=== PATIENT | female | born 1995 | race Caucasian/White ===

== ENCOUNTER 2020-04-12 12:25 | Emergency (ER) | payer OTHER, MEDICAID, SELFPAY ==
[2020-04-12 12:51] VITALS: BP 132/67; PULSE 96; RESP 18; TEMP 36.9; O2SAT 97; BMI 44.6
[2020-04-12] MEDS: SODIUM CHLORIDE 0.9% 1,000 ML 1000 ML IV (13:30)
[2020-04-12] MEDS: ONDANSETRON 4 MG/2 ML INJ IV (13:30)
[2020-04-12] MEDS: ACETAMINOPHEN 325 MG TABLET 650 MG PO (13:30)
[2020-04-12 13:37] LABS: Add Manual Diff / Slide Review NO; Basophils Absolute Auto 0 /uL (0-100); Basophils Percent Auto 0.4 % (0-2); Eosinophils Absolute Auto 300 /uL (0-450); Eosinophils Percent Auto 2.8 % (2-4); Hematocrit 34.7 % (36-46); Hemoglobin 11.9 g/dL (12.0-16.0); Lymphocytes Absolute Auto 1900 /uL (1100-4500); Lymphocytes Percent Auto 16.1 % (25-40); Mean Corpuscular HGB Conc 34.2 % (30-36); Mean Corpuscular Hemoglobin 28.6 PG (26-34); Mean Corpuscular Volume 83.7 fL (80-100); Monocytes Absolute Auto 800 /uL (0-900); Monocytes Percent Auto 6.8 % (3-14); Neutrophils Absolute Auto 8500 /uL (1500-7000); Neutrophils Percent Auto 73.9 % (50-75); Platelet Count 211 X10^3/uL (150-400); Red Blood Cell Count 4.14 X10^6/uL (4.0-5.2); Red Cell Distribution Width 15.9 % (11.6-14.8); White Blood Cell Count 11.6 X10^3/uL (4.5-11.0)
[2020-04-12 13:47] LABS: Alanine Aminotransferase 12 IU/L (<35); Albumin 3.6 g/dL (3.5-5.0); Albumin Globulin Ratio 1.2 (1.0-2.8); Alkaline Phosphatase 60 U/L (38-126); Aspartate Aminotransferase 34 IU/L (14-36); BUN Creatinine Ratio 21.3 (6-22); Bilirubin Total 0.2 mg/dL (0.2-1.3); Blood Urea Nitrogen 10 mg/dL (7-17); Calcium 9.1 mg/dL (8.4-10.2); Carbon Dioxide 22 mmol/L (22-32); Chloride 104 mmol/L (98-107); Estimated Glomerular Filt Rate > 60.0 mL/min (>60); Globulin 3.1 g/dL (1.7-4.1); Glucose 106 mg/dL (70-100); HEMOLYSIS < 15 (0-50); Potassium 3.6 mmol/L (3.4-5.1); Sodium 135 mmol/L (137-145); Total Protein 6.7 g/dL (6.3-8.2)
[2020-04-12 14:00] VITALS: BP 105/54; PULSE 87; RESP 16; O2SAT 100
[2020-04-12 14:44] LABS: RBC Urine None Seen (0-5/HPF)
[2020-04-12 14:51] LABS: Amorphous Sediment Urine 2+; Bacteria Urine Many (>30); Culture Indicated Urine Cult Not Indicated; Squamous Epithelial Cell Urine 10-30 /HPF (0-5/HPF); WBC Urine 1-5/HPF (0-5/HPF)
--- NOTE | 2020-04-12 14:55 | ED_ITS ---
HPI - Headache <DIONE Nogueira - Last Filed: 04/12/20 20:01> General Chief Complaint: Headache Stated Complaint: 17wks , dizzy, higher BP than usual Time Seen by Provider: 04/12/20 12:49 Source: patient Mode of arrival: Ambulatory Limitations: no limitations History of Present Illness HPI Narrative: This is a 24 year female, nonsmoker, history of and reports she is with approximately 18 week EGA presents to ED with chief complain of feeling dizzy, nausea, headache at work. Patient noticed elevated blood pressure of 134/84 and heart rate up to 106. Patient states her usual blood pressures in 120s over 70s. 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 She felt dehydrated so she drank 2 large glass of water and had something to eat. Patient reports mild abdominal pain but denies vaginal bleeding. Patient occasionally feels movement as fluttering sensation. She reports IUP has been verified and is a patient of informal waiter/waitress STANLEY Funes in [facility]. She had an appointment in the beginning of March and follow-up appointment is set up on this month. Patient denies history of complication during including -induced hypertension, diabetes. Patient has history of asthma and is currently taking vitamin. LMP 12/11/19 and currently 17 wks +4 days EGA. Related Data Previous Rx's Medication Instructions Recorded ondansetron 4 mg PO BID-TID PRN #7 tab 04/12/20 Allergies Allergy/AdvReac Type Severity Reaction Status Date / Time No Known Drug Allergies Allergy Verified 04/12/20 13:29 Review of Systems <DIONE Nogueira - Last Filed: 04/12/20 20:01> Review of Systems Narrative: General: Denies fever, chills, fatigue, malaise, sweats. HEENT: Denies sinus pain, ear pain, sore throat, difficulty swallowing, dizziness. Respiratory: Denies dyspnea, cough, wheezing, hemoptysis, sputum. Cardiovascular: Denies chest pain, palpitations, orthopnea, edema. Gastrointestinal: Denies (+) nausea, vomiting, abdominal pain, diarrhea, constipation, melena. : Denies dysuria, frequency, incontinence, hematuria, urinary retention. Musculoskeletal: Denies weakness, joint pain or bony pain. Skin: Denies rash, skin lesions, or other. Neurologic: Denies weakness, (+) mild headache, (+) mild dizziiness, numbness, change in speech, confusion, seizures, incoordination. Psychiatric: No concerning psychosocial issues. 12-point review of systems is negative except for those stated above. Patient History <DIONE Nogueira - Last Filed: 04/12/20 20:01> Medical History Asthma (Acute) Social History Smoking Status: Never smoker Smoking Status: Never smoker alcohol intake frequency: 0-2 drinks per day Substance Use Type: does not use Exam <DIONE Nogueira - Last Filed: 04/12/20 20:01> Narrative Exam Narrative: GEN: Alert, oriented x 3, well appearing and nourished, and in no acute distress. Head: Normal cephalic, atraumatic. No scalp or temporal tenderness, palpable mass or rash. EYES: Pupils are equal, round, and reactive to light and accommodation. Extraocular muscles are intact bilaterally. There is no subconjunctival hemorrhage, exudate and sclera non-icteric. ENT: Hearing grossly intact. Nose without bleeding, purulent discharge or deviation. Facial sinuses nontender to palpate. Mucous membrane dry, no mucosal lesion. Throat without erythema, tonsillar hypertrophy or exudate. Uvula in midline, airway patent. Neck: Trachea in midline. No JVD, non-tender without lymphadenopathy. No masses or thyroid megaly. Supple, non-tender and no meningeal signs. CARDIAC: Normal regular rate and rhythm without murmurs, gallops, or rubs. No chest wall tenderness. No peripheral edema, cyanosis or pallor. Capillary refill is less than 2 seconds. RESPIRATORY: Lungs are clear to auscultate bilaterally. No cough, wheezes, rales, or rhonchi. No stridor, respiratory distress, increase work of breathing, or accessary muscle used. ABD: Abdomen soft, nontender and non-distended. No guarding or rebound tenderness to palpate. Bowel sounds are normal in all 4 quadrants. There is no palpable masses or organomegaly. EXT: Full painless ROM of all extremities with no loss of sensation, strength, effusion or edema. SKIN: Warm, dry, normal color for patient. No erythema, lesions or rash over visible areas. BACK: Nontender without deformity or crepitance. No flank tenderness. NEUROLOGICAL: Alert and oriented to place, time and person. Sensation and motor function intact bilaterally. No facial droops, dysphasia. PSYCHIATRIC: Good judgement and reason, without hallucinations, abnormal affect or abnormal behaviors during the examination. Patient is not suicidal. Initial Vital Signs Initial Vital Signs: Vital Signs Temperature 98.4 F 04/12/20 12:51 Pulse Rate 96 H 04/12/20 12:51 Respiratory Rate 18 04/12/20 12:51 Blood Pressure 132/67 04/12/20 12:51 Pulse Oximetry 97 04/12/20 12:51 OB/External & Speculum: deferred Other: FHT in 140 bmp <Emigdio Smith MD - Last Filed: 04/13/20 08:05> Initial Vital Signs Initial Vital Signs: Vital Signs Temperature 98.4 F 04/12/20 12:51 Pulse Rate 96 H 04/12/20 12:51 Respiratory Rate 18 04/12/20 12:51 Blood Pressure 132/67 04/12/20 12:51 Pulse Oximetry 97 04/12/20 12:51 Scores <DIONE Nogueira - Last Filed: 04/12/20 20:01> GCS Connie coma scale eye opening: Spontaneous Connie coma scale verbal response: Orientated Connie coma scale motor response: Obey commands Connie coma scale total score: 15 Course <DIONE Nogueira - Last Filed: 04/12/20 20:01> Orders Ordered: Discontinued Medications Acetaminophen (Tylenol) 650 mg PO NOW ONE Stop: 04/12/20 12:59 Last Admin: 04/12/20 13:30 Dose: 650 mg Documented by: BRIANDA Sodium Chloride (Normal Saline 0.9%) 1,000 mls @ 1,000 mls/hr IV BOLUS ONE Stop: 04/12/20 13:57 Last Infusion: 04/12/20 14:34 Dose: 0 mls/hr Documented by: Admin: 04/12/20 13:30 Dose: 1,000 mls/hr Documented by: SCANAPO Ondansetron HCl (Zofran) 4 mg IV NOW ONE Stop: 04/12/20 12:59 Last Admin: 04/12/20 13:30 Dose: 4 mg Documented by: BRIANDA Vital Signs Vital signs: Vital Signs - 8 hr 04/12/20 12:51 04/12/20 14:00 04/12/20 15:00 Temperature 98.4 F Pulse Rate 96 H 87 91 H Respiratory Rate 18 16 16 Blood Pressure 132/67 Blood Pressure [Right Arm] 105/54 L 109/59 L Pulse Oximetry 97 100 97 <Emigdio Smith MD - Last Filed: 04/13/20 08:05> Orders Ordered: Discontinued Medications Acetaminophen (Tylenol) 650 mg PO NOW ONE Stop: 04/12/20 12:59 Last Admin: 04/12/20 13:30 Dose: 650 mg Documented by: BRIANDA Sodium Chloride (Normal Saline 0.9%) 1,000 mls @ 1,000 mls/hr IV BOLUS ONE Stop: 04/12/20 13:57 Last Infusion: 04/12/20 14:34 Dose: 0 mls/hr Documented by: Admin: 04/12/20 13:30 Dose: 1,000 mls/hr Documented by: BRIANDA Ondansetron HCl (Zofran) 4 mg IV NOW ONE Stop: 04/12/20 12:59 Last Admin: 04/12/20 13:30 Dose: 4 mg Documented by: BRIANDA Vital Signs Vital signs: Vital Signs - 8 hr 04/12/20 12:51 04/12/20 14:00 04/12/20 15:00 Temperature 98.4 F Pulse Rate 96 H 87 91 H Respiratory Rate 18 16 16 Blood Pressure 132/67 Blood Pressure [Right Arm] 105/54 L 109/59 L Pulse Oximetry 97 100 97 MDM - Headache <DIONE Nogueira - Last Filed: 04/12/20 20:01> Differential Diagnosis Differential diagnosis: Likely headache and other (Dehydration, arrhythmia, anemia, electrolytes imbalance) Medical Records Attestation: I reviewed the patient's medical records. Lab Data Attestation: I reviewed the patient's lab results. Result diagrams: 04/12/20 13:25 04/12/20 13:25 Labs: Lab Results 06/04/12/20 04/12/20 Range/Units 13:25 13:25 14:35 WBC 11.6 H (4.5-11.0) X10^3/uL RBC 4.14 (4.0-5.2) X10^6/uL Hgb 11.9 L (12.0-16.0) g/dL Hct 34.7 L (36-46) % MCV 83.7 (80-100) fL MCH 28.6 (26-34) PG MCHC 34.2 (30-36) % RDW 15.9 H (11.6-14.8) % Plt Count 211 (150-400) X10^3/uL Neut % (Auto) 73.9 (50-75) % Lymph % (Auto) 16.1 L (25-40) % [place] % (Auto) 6.8 (3-14) % Eos % (Auto) 2.8 (2-4) % Baso % (Auto) 0.4 (0-2) % Neut # (Auto) 8500 H (9951-6114) /uL Lymph # (Auto) 1900 (0868-0076) /uL [place] # (Auto) 800 (0-900) /uL Eos # (Auto) 300 (0-450) /uL Baso # (Auto) 0 (0-100) /uL Sodium 135 L (137-145) mmol/L Potassium 3.6 (3.4-5.1) mmol/L Chloride 104 (98-107) mmol/L Carbon Dioxide 22 (22-32) mmol/L BUN 10 (7-17) mg/dL Creatinine 0.47 L (0.52-1.04) mg/dL Estimated GFR > 60.0 (>60) mL/min BUN/Creatinine Ratio 21.3 (6-22) Glucose 106 H (70-100) mg/dL Calcium 9.1 (8.4-10.2) mg/dL Total Bilirubin 0.2 (0.2-1.3) mg/dL AST 34 (14-36) IU/L ALT 12 (<35) IU/L Alkaline Phosphatase 60 (38-126) U/L Total Protein 6.7 (6.3-8.2) g/dL Albumin 3.6 (3.5-5.0) g/dL Globulin 3.1 (1.7-4.1) g/dL Albumin/Globulin Ratio 1.2 (1.0-2.8) Urine RBC None seen (0-5/HPF) Urine WBC 1-5/hpf (0-5/HPF) Ur Squamous Epith Cells 10-30 /hpf H (0-5/HPF) Amorphous Sediment 2+ Urine Bacteria Many (>30) H (None) Ur Culture Indicated? Cult not indicated Point of Care Testing Test Results Positive Urine Dip Bedside Urine Glucose Negative Bedside Urine Bilirubin - Negative Bedside Urine Ketone - Negative Urine Specific [place] 1.015 Bedside Urine Occult Blood - Negative Bedside Urine pH 6.0 Bedside Urine Protein - Negative Bedside Urine Urobilinogen - Negative Bedside Urine Nitrite - Negative Bedside Urine Leukocytes + 70 Esterase ECG Data Attestation: I personally reviewed and interpreted this ECG as follows: Prior ECG tracings: not available for review Interpretation: Sinus rhythm rate at 85. Normal [place]. OK interval 158, QRS duration 90, QT/QTC 364/433. No acute ST changes MDM Narrative Medical decision making narrative: EKG is normal sinus rhythm without acute ST changes. Slightly decreased H&H of 11.9/34.7 which could be normal physiologic changes during . No leukocytosis. Slightly decreased sodium level of 135. Normal kidney function and liver function test. Slightly increased serum glucose of 106. Normal heart tone in range of 140 bpm. Patient was hydrated with 1 L of normal saline and administered Tylenol and Zofran for her symptoms and she felt much improved. Patient was able to ambulate to the bathroom in stable gait and back to bed. Vital signs have improved with decreased blood pressure to 109/59 with heart rate in 80s to 91. Negative urine nitrite with +70 urine leukoesterase. Urine micro tests shows squamous epithelial cells with many bacteria with small amount of Urine WBC of 1-5/hpf. This is possibly due to contaminated urine sample. Urine culture is pending and patient denies any urinary symptoms. Patient discharged to home with Zofran for as needed nausea and vomiting and advised to take Tylenol as needed for discomfort. Since patient does not have vaginal bleeding, pelvic exam was deferred and no further ultrasound test was obtained during this visit. Return precautions were discussed with patient and she verbalized understanding and in agreement with treatment plan. <Emigdio Smith MD - Last Filed: 04/13/20 08:05> Lab Data Labs: Lab Results 04/12/20 04/12/20 04/12/20 Range/Units 13:25 13:25 14:35 WBC 11.6 H (4.5-11.0) X10^3/uL RBC 4.14 (4.0-5.2) X10^6/uL Hgb 11.9 L (12.0-16.0) g/dL Hct 34.7 L (36-46) % MCV 83.7 (80-100) fL MCH 28.6 (26-34) PG MCHC 34.2 (30-36) % RDW 15.9 H (11.6-14.8) % Plt Count 211 (150-400) X10^3/uL Neut % (Auto) 73.9 (50-75) % Lymph % (Auto) 16.1 L (25-40) % [place] % (Auto) 6.8 (3-14) % Eos % (Auto) 2.8 (2-4) % Baso % (Auto) 0.4 (0-2) % Neut # (Auto) 8500 H (7931-9322) /uL Lymph # (Auto) 1900 (1026-6280) /uL [place] # (Auto) 800 (0-900) /uL Eos # (Auto) 300 (0-450) /uL Baso # (Auto) 0 (0-100) /uL Sodium 135 L (137-145) mmol/L Potassium 3.6 (3.4-5.1) mmol/L Chloride 104 (98-107) mmol/L Carbon Dioxide 22 (22-32) mmol/L BUN 10 (7-17) mg/dL Creatinine 0.47 L (0.52-1.04) mg/dL Estimated GFR > 60.0 (>60) mL/min BUN/Creatinine Ratio 21.3 (6-22) Glucose 106 H (70-100) mg/dL Calcium 9.1 (8.4-10.2) mg/dL Total Bilirubin 0.2 (0.2-1.3) mg/dL AST 34 (14-36) IU/L ALT 12 (<35) IU/L Alkaline Phosphatase 60 (38-126) U/L Total Protein 6.7 (6.3-8.2) g/dL Albumin 3.6 (3.5-5.0) g/dL Globulin 3.1 (1.7-4.1) g/dL Albumin/Globulin Ratio 1.2 (1.0-2.8) Urine RBC None seen (0-5/HPF) Urine WBC 1-5/hpf (0-5/HPF) Ur Squamous Epith Cells 10-30 /hpf H (0-5/HPF) Amorphous Sediment 2+ Urine Bacteria Many (>30) H (None) Ur Culture Indicated? Cult not indicated Point of Care Testing Test Results Positive Urine Dip Bedside Urine Glucose Negative Bedside Urine Bilirubin - Negative Bedside Urine Ketone - Negative Urine Specific [place] 1.015 Bedside Urine Occult Blood - Negative Bedside Urine pH 6.0 Bedside Urine Protein - Negative Bedside Urine Urobilinogen - Negative Bedside Urine Nitrite - Negative Bedside Urine Leukocytes + 70 Esterase Discharge Plan Departure Patient Disposition: Home Clinical Impression: Dizziness Headache Qualifiers: Headache type: unspecified Headache chronicity pattern: unspecified pattern Intractability: not intractable Qualified Code(s): R51 - Headache Discharge Date/Time: 04/12/20 15:27 Instructions: DI for Headache, DI for Dizziness-Nonvertigo Activity Restrictions/Additional Instructions: You have been diagnosed with [mild headache and dizziness during . Very mild anemia today and H/H is 11.9/34.7 which may be normal physiologic changes during . Mildly decreased sodium level of 135 and mildly elevated blood glucose of 106. Urine culture is pending and you do not endorse urinary symptoms today. Urine sample may be contaminated. You might have been dehydrated which has been corrected by p.o. and IV fluids. What to do: *Take your medications as directed. You can take [id number] Tylenol as needed for discomfort. Please take Zofran as needed for nausea so it you can hydrate adequately. Zofran has been transmitted to [facility] in [place]. *Follow up with your primary care provider in 2-3 days, call for an appointment. Let them know you were seen in the ED and that we asked you to be seen in follow up. *Return to ED if you have any new, worsening, or concerning symptoms, such as [increasing abdominal pain, vaginal bleeding, chest pain, breathing difficulty, unable to tolerate fluids, fever or any acute concerns]. Prescriptions: New ondansetron 4 mg tablet,disintegrating 4 mg PO BID-TID PRN (Reason: nausea and vomiting) Qty: 7 RF: 0 Referrals: [facility] [Outside]
[2020-04-12 15:00] VITALS: BP 109/59; PULSE 91; RESP 16; O2SAT 97
== END 2020-04-12 15:27 | disposition home or self-care (01) ==
PROVIDERS: Emergency Provider Nurse Practitioner Family
DX: O26.892 Other specified pregnancy related conditions, second trimester (principal); R42 Dizziness and giddiness; R51 Headache; I10 Essential (primary) hypertension; Z3A.18 18 weeks gestation of pregnancy
CPT/HCPCS: 36415; 80053; 81003; 81015; 81025; 85025; 93005; 96361; 96374; 99284; J2405

== ENCOUNTER → 2020-06-11 08:33 | Outpatient (CLI) | payer OTHER, MEDICAID, SELFPAY ==
[2020-06-11 10:43] LABS: Hematocrit 35.3 % (36-46); Hemoglobin 11.6 g/dL (12.0-16.0)
[2020-06-18 13:40] LABS: GTT (PREG) 1 Hour PP 50gm Dose 119 mg/dL (76-139)
== END ==
PROVIDERS: PCP Obstetrics & Gynecology; Referring Provider Obstetrics & Gynecology; Visit Provider Obstetrics & Gynecology
DX: Z34.82 Encounter for supervision of other normal pregnancy, second trimester (principal); Z3A.26 26 weeks gestation of pregnancy
CPT/HCPCS: 36415; 82950; 85014; 85018

== ENCOUNTER 2020-07-05 13:41 | Outpatient (CLI) | payer OTHER, MEDICAID, SELFPAY | END 2020-07-05 14:50 | disposition home or self-care (01) | LOC: LABOR 14:27 → OB 07-06 12:31 | PROVIDERS: PCP Obstetrics & Gynecology; Referring Provider Obstetrics & Gynecology; Visit Provider Obstetrics & Gynecology | DX: O47.03 False labor before 37 completed weeks of gestation, third trimester (principal); N89.8 Other specified noninflammatory disorders of vagina; Z3A.29 29 weeks gestation of pregnancy | CPT/HCPCS: 59025; 84112; G0378; G0379 ==

== ENCOUNTER 2020-08-10 10:41 | Emergency (ER) | payer OTHER, MEDICAID, SELFPAY ==
[2020-08-10 10:55] VITALS: BP 145/71; PULSE 110; RESP 18; TEMP 36.9; O2SAT 97; BMI 42.9
[2020-08-10 11:04] VITALS: PULSE 108; O2SAT 97
[2020-08-10 11:30] VITALS: PULSE 99; O2SAT 95
[2020-08-10 12:00] VITALS: PULSE 101; O2SAT 97
[2020-08-10] MEDS: LIDOCAINE PATCH 1 EACH ADH..PATCH TOP (12:07)
[2020-08-10] MEDS: ACETAMINOPHEN 325 MG TABLET 975 MG PO (12:08)
[2020-08-10 12:30] VITALS: PULSE 96; O2SAT 98
--- NOTE | 2020-08-10 13:16 | ED.FALL ---
HPI - Fall <Janie Pate SWITCHBOARD OPERATOR SUPERVISOR-BC - Last Filed: 08/10/20 14:24> General Chief Complaint: Fall Stated Complaint: fell at work, 35 weeks preg Time Seen by Provider: 08/10/20 11:21 Source: patient Mode of arrival: Ambulatory Limitations: no limitations History of Present Illness HPI Narrative: The patient is a 25-year-old female former smoker with 35 weeks who presents with a chief complaint of a ground level fall earlier today. She states that she stepped on a wet floor while at work, slipped back and presents complaining of right great toe pain, right graham pain and lower back pain. She did not lose consciousness. She states she did not hit her head. She is 35 weeks , did not land on her abdomen, does not have any vaginal bleeding or abdominal pain. She states that the baby feels fine and she can feel her kicking a lot. She has not taken anything for pain or applied ice. 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 She denies any numbness or tingling. She denies any incontinence of bowel or bladder. She denies any head or neck pain. Modified trauma was considered for this patient as she is more than 20 weeks , however elected not to as she did not hit her head or her neck and is declining any imaging in the emergency department. Related Data Home Medications Medication Instructions Recorded Confirmed acetaminophen 500 mg capsule 500 mg PO Q6H PRN 05/27/20 07/21/20 aspirin 81 mg tablet,delayed 81 mg PO DAILY 05/27/20 07/21/20 release doxylamine 10 mg-pyridoxine (vit 1 tab PO DAILY 05/27/20 07/21/20 B6) 10 mg tablet,delayed release naproxen 500 mg tablet,delayed 500 mg PO BID 05/27/20 07/21/20 release sertraline 50 mg tablet 50 mg PO DAILY 05/27/20 07/21/20 Previous Rx's Medication Instructions Recorded ondansetron 4 mg PO BID-TID PRN #7 tab 04/12/20 Allergies Allergy/AdvReac Type Severity Reaction Status Date / Time cat dander Allergy Severe not Verified 07/21/20 15:34 documented in Transfer OB Record pollen extracts Allergy Intermediate not Verified 07/21/20 15:34 documented in Transfer OB Record Review of Systems <ASHWIN Nolasco - Last Filed: 08/10/20 14:24> Review of Systems Narrative: GENERAL: Denies chills, fatigue, malaise, fever, sweats. HEENT: Denies sinus pain, ear pain, sore throat, difficulty swallowing, dizziness. RESPIRATORY: Denies dyspnea, cough, wheezing, hemoptysis, sputum. CARDIOVASCULAR: Denies chest pain, palpitations, orthopnea, edema, GASTROINTESTINAL: Denies nausea, vomiting, abdominal pain, diarrhea, constipation, melena. : Denies dysuria, frequency, incontinence, hematuria, urinary retention. MUSCULOSKELETAL: See HPI SKIN: See HPI NEUROLOGIC: Denies weakness, headache, numbness, change in speech, confusion, seizures, incoordination. PSYCHIATRIC: No concerning psychosocial issues. 12 point review of systems is negative except for those stated above Patient History <ASHWIN Nolasco - Last Filed: 08/10/20 14:24> Medical History (Updated 08/10/20 @ 13:20 by ASHWIN Nolasco) Acne (Chronic) Allergies (Chronic) Anemia (Chronic) Anxiety and depression (Acute) Asthma (Acute) Bronchitis (Acute) Chlamydia (Inactive ~2010) Heavy menstrual period (Chronic) Hemorrhoid (Inactive ~2014) Major depression (Acute) Obesity (Acute) Painful menstrual periods (Inactive) Psoriasis (Chronic) Surgical History (Updated 06/11/20 @ 11:36 by Alea Macias RN) Anesthesia (Resolved) History of hernia repair (Resolved ~1998) Family History (Updated 06/11/20 @ 11:33 by Alea Macias, RN) Grandmother Breast cancer Pacemaker History of peritoneal dialysis Asthma Colon cancer Mother Breast cancer Scoliosis Allergies History of stillbirth Family/Other Skin cancer History of bipolar disorder Father Hypertension Sleep apnea Rheumatoid arthritis Grandmother Hypertension Hypothyroidism Sister Hyperthyroidism Anemia Scoliosis Depression Anxiety Asthma Allergies Migraines History of thyroidectomy Brother Autism Family/Other ADHD Depression Asthma Plantar warts Family/Other History of bipolar disorder Dissociative disorder Family/Other Eczema Grandfather Cancer Myocardial infarction Grandmother Cancer Breast cancer Colon cancer H/O right coronary artery stent placement Social History (Updated 05/27/20 @ 11:10 by Alea Macias RN) marital status: unmarried,living together number of children: 1 household members: significant other, family and children lives independently: No pets and animals: Yes (X 1 dog) 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 occupational 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: Yes (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 Normocephalic. No temporal or scalp tenderness. EYES: Pupils equal round and reactive. Extraocular motions intact. No scleral icterus. No injection or drainage. ENT: Nose without bleeding, purulent drainage or septal hematoma. Wearing a mask. Airway patent. NECK: Trachea midline. No JVD or lymphadenopathy. Supple, nontender, no meningeal signs. CARDIOVASCULAR: Regular rate and rhythm RESPIRATORY: Clear to auscultation. Breath sounds equal bilaterally. No wheezes, rales, or rhonchi. No cough. No increased respiratory effort. No accessory muscle use. GASTROINTESTINAL: Abdomen soft, non-tender, nondistended. Gravid uterus. No hepato-splenomegaly, or palpable masses. No guarding. EXTREMITIES: Skin exam as noted. Full range of motion noted right knee able to fully flex and extend, able to flex and extend right great toe against resistance. Capillary refill less than 2 seconds. Pedal pulses intact bilaterally. BACK: No pain to midline CT or L-spine palpation. Nontender without deformity or crepitance. Pain to right paraspinal muscle palpation on the lumbar region. NEURO: AOx3. SKIN: Two cm abrasion noted on right knee, area of ecchymosis noted at base of right 1st toe. Vital signs. No periorbital ecchymosis. Initial Vital Signs Initial Vital Signs: Vital Signs Temperature 98.5 F 08/10/20 10:55 Pulse Rate 110 H 08/10/20 10:55 Respiratory Rate 18 08/10/20 10:55 Blood Pressure 145/71 H 08/10/20 10:55 Pulse Oximetry 97 08/10/20 10:55 <Timothy Mark DO - Last Filed: 08/10/20 14:25> Initial Vital Signs Initial Vital Signs: Vital Signs Temperature 98.5 F 08/10/20 10:55 Pulse Rate 110 H 08/10/20 10:55 Respiratory Rate 18 08/10/20 10:55 Blood Pressure 145/71 H 08/10/20 10:55 Pulse Oximetry 97 08/10/20 10:55 Course <WILY NolascoBC - Last Filed: 08/10/20 14:24> Orders Ordered: Discontinued Medications Acetaminophen (Tylenol) 975 mg PO NOW ONE Stop: 08/10/20 11:50 Last Admin: 08/10/20 12:08 Dose: 975 mg Documented by: ALBINMEN Lidocaine (Lidoderm) 1 each TOP NOW ONE Stop: 08/10/20 11:50 Last Admin: 08/10/20 12:07 Dose: 1 each Documented by: ALBINMEN Lidocaine (Lidoderm (Remove Patch)) 1 each TOP BEDTIME BUFFY Vital Signs Vital signs: Vital Signs - 8 hr 08/10/20 10:55 08/10/20 11:04 08/10/20 11:30 Temperature 98.5 F Pulse Rate 110 H 108 H 99 H Respiratory Rate 18 Blood Pressure 145/71 H Pulse Oximetry 97 97 95 08/10/20 12:00 08/10/20 12:30 08/10/20 13:45 Temperature Pulse Rate 101 H 96 H 92 H Respiratory Rate 18 Blood Pressure 130/64 Pulse Oximetry 97 98 100 <Timothy Mark DO - Last Filed: 08/10/20 14:25> Orders Ordered: Discontinued Medications Acetaminophen (Tylenol) 975 mg PO NOW ONE Stop: 08/10/20 11:50 Last Admin: 08/10/20 12:08 Dose: 975 mg Documented by: BSMEN Lidocaine (Lidoderm) 1 each TOP NOW ONE Stop: 08/10/20 11:50 Last Admin: 08/10/20 12:07 Dose: 1 each Documented by: BSMEN Lidocaine (Lidoderm (Remove Patch)) 1 each TOP BEDTIME BUFFY Vital Signs Vital signs: Vital Signs - 8 hr 08/10/20 10:55 08/10/20 11:04 08/10/20 11:30 Temperature 98.5 F Pulse Rate 110 H 108 H 99 H Respiratory Rate 18 Blood Pressure 145/71 H Pulse Oximetry 97 97 95 08/10/20 12:00 08/10/20 12:30 08/10/20 13:45 Temperature Pulse Rate 101 H 96 H 92 H Respiratory Rate 18 Blood Pressure 130/64 Pulse Oximetry 97 98 100 MDM - Fall <Janie Pate SWITCHBOARD OPERATOR SUPERVISOR-BC - Last Filed: 08/10/20 14:24> [facility] Narrative Medical decision making narrative: The patient is a 25-year-old female who presents with a chief complaint of a ground level fall earlier today and she is 35 weeks . She has good baby movement, heart tones in the 150s. After the above-stated therapies, she declines imaging at this point time. I discussed with her that I could not rule out acute fracture at this point time however the fact that she can ambulate and has good range of motion is very reassuring. She still declines any imaging as well. She states that she is having could be moved, BV can be felt kicking with no abdominal pain or vaginal bleeding. Encouraged to follow up with primary care provider in the next few days as well as come back to the emergency department for any acute concerns such as abdominal pain. Discussed patient with Dr Mark. Encouraged rest ice compression elevation as well as [id number] pain medications as needed and able. Patient has no questions or concerns upon discharge and states understanding return precautions as well as follow-up care. Discharge Plan Departure Patient Disposition: Home Clinical Impression: Fall from ground level Abrasion of knee Qualifiers: Encounter type: initial encounter Laterality: right Qualified Code(s): S80.211A - Abrasion, right knee, initial encounter Low back strain Qualifiers: Encounter type: initial encounter Qualified Code(s): S39.012A - Strain of muscle, fascia and tendon of lower back, initial encounter Contusion of toe of left foot Qualifiers: Encounter type: initial encounter Toe: great toe Damage to nail status: without damage Qualified Code(s): S90.112A - Contusion of left great toe without damage to nail, initial encounter Discharge Date/Time: 08/10/20 13:45 Instructions: DI for Contusion, How to Prevent Falls, DI for Abrasion, DI for Back Strain or Sprain Activity Restrictions/Additional Instructions: Thank you for trusting us with your care today. As discussed, please follow-up with primary care provider in the next few days I suggest rest ice compression elevation as well as acetaminophen as needed and able. You have elected to not get x-rays today, so definitely follow up with primary care provider specially if new or worsening symptoms. In the meantime please come back to the emergency department for any acute concerns such as inability keep down fluids, neurological concerns etcetera. I have given you a work note for light duty for several days. Prescriptions: No Action sertraline 50 mg tablet 50 mg PO DAILY RF: 0 acetaminophen 500 mg capsule 500 mg PO Q6H PRNRF: 0 naproxen [EC-Naproxen] 500 mg tablet,delayed release (DR/EC) 500 mg PO BID RF: 0 doxylamine-pyridoxine (vit B6) [Diclegis] 10-10 mg tablet,delayed release (DR/EC) 1 tab PO DAILY RF: 0 aspirin [Adult Aspirin Regimen] 81 mg tablet,delayed release (DR/EC) 81 mg PO DAILY RF: 0 ondansetron 4 mg tablet,disintegrating 4 mg PO BID-TID PRN (Reason: nausea and vomiting) Qty: 7 RF: 0 Referrals: Rajesh Turk [Primary Care Provider] - Stand Alone Forms: Work Release Note <Timothy Mark, - Last Filed: 08/10/20 14:25> Cosign ED Attending Cosignature Attestation: Dr Mark Co-Sign Statement: I was available for consultation during this patient's emergency department visit. This chart is signed by myself for administrative purposes only. I did not have direct contact with this patient during this visit. They were seen independently by the APC.
[2020-08-10 13:45] VITALS: BP 130/64; PULSE 92; RESP 18; O2SAT 100
== END 2020-08-10 13:45 | disposition home or self-care (01) ==
PROVIDERS: Emergency Provider Nurse Practitioner Family; PCP Physician Assistant Medical
DX: S80.211A Abrasion, right knee, initial encounter (principal); S39.012A Strain of muscle, fascia and tendon of lower back, initial encounter; S90.112A Contusion of left great toe without damage to nail, initial encounter; W01.0XXA Fall on same level from slipping, tripping and stumbling without subsequent striking against object, initial encounter; Y99.0 Civilian activity done for income or pay
CPT/HCPCS: 99283

== ENCOUNTER → 2020-08-11 17:07 | Outpatient (CLI) | payer OTHER, MEDICAID, SELFPAY ==
[2020-08-12 14:22] LABS: Strep Grp B PCR POS for Grp B Strep
== END ==
PROVIDERS: PCP Physician Assistant Medical; Visit Provider Obstetrics & Gynecology
DX: Z34.83 Encounter for supervision of other normal pregnancy, third trimester (principal); Z3A.35 35 weeks gestation of pregnancy
CPT/HCPCS: 87653

== ENCOUNTER → 2020-09-07 10:53 | Outpatient (CLI) | payer OTHER, MEDICAID, SELFPAY ==
[2020-09-07 12:38] LABS: COVID19 -Nasal RAPID Negative (Negative)
== END ==
PROVIDERS: PCP Physician Assistant Medical; Visit Provider Obstetrics & Gynecology
DX: Z03.818 Encounter for observation for suspected exposure to other biological agents ruled out (principal)
CPT/HCPCS: 87635

== ENCOUNTER 2020-09-08 06:30 | Inpatient (IN) | payer OTHER, MEDICAID, SELFPAY ==
[2020-09-08] MEDS: LACTATED RINGERS 1,000 ML 125 ML IV ×3 (08:27→15:37)
[2020-09-08] MEDS: PENICILLIN G POTASSIUM 5,000,000 UNIT in DEXTROSE 5% IN WATER 250 ML IV (08:27)
[2020-09-08] MEDS: OXYTOCIN PREMIX 30 UNIT/500 ML PLAST..BAG IV (08:28)
[2020-09-08 08:49] LABS: Add Manual Diff / Slide Review NO; Basophils Absolute Auto 0 /uL (0-100); Basophils Percent Auto 0.3 % (0-2); Eosinophils Absolute Auto 200 /uL (0-450); Eosinophils Percent Auto 2.3 % (2-4); Hematocrit 38.7 % (36-46); Hemoglobin 12.6 g/dL (12.0-16.0); Lymphocytes Absolute Auto 2100 /uL (1100-4500); Lymphocytes Percent Auto 20.2 % (25-40); Mean Corpuscular HGB Conc 32.6 % (30-36); Mean Corpuscular Volume 85.6 fL (80-100); Monocytes Absolute Auto 800 /uL (0-900); Monocytes Percent Auto 7.6 % (3-14); Neutrophils Absolute Auto 7200 /uL (1500-7000); Neutrophils Percent Auto 69.6 % (50-75); Platelet Count 196 X10^3/uL (150-400); Red Blood Cell Count 4.51 X10^6/uL (4.0-5.2); Red Cell Distribution Width 14.9 % (11.6-14.8); White Blood Cell Count 10.4 X10^3/uL (4.5-11.0)
[2020-09-08 11:27] VITALS: BP 117/56
[2020-09-08] MEDS: PENICILLIN G POTASSIUM 3,000,000 UNIT/50 ML FROZ.PIGGY 100 UNIT IV (12:50)
[2020-09-08] MEDS: FENT 2MCG/ML BUPIV 0.125% EPI 200 MCG/100 ML PLAST..BAG 12 MCG EPIDURAL (13:00)
[2020-09-08] MEDS: ONDANSETRON 4 MG/2 ML INJ IV (13:05)
--- NOTE | 2020-09-08 17:45 | PM.OBHP.1 ---
OB HPI Date/Time Date of admission: 09/08/20 Date Patient Seen: 09/08/20 Time Patient Seen: 08:00 History of Present Condition Chief complaint: OBS : 2 Para: 1 Estimated Date of Delivery: 09/15/20 Estimated Gestational Age (weeks): 39 Narrative: Tamra Francisco is a 25 year old female 2 para 1 at 39 weeks gestation for induction of labor Indications Indication for induction OB: other ( history of large for gestational age baby) History of Present care: good care, initiated at week # (10), number of visits (12) and pounds weight gain ( 39) Dating criteria: LMP confirmed by 1st trimester US Ultrasounds: normal 1st trimester US and normal mid trimester US Obstetrical complications: none Medical complications: none Preadmission Labs Blood type: O (+) positive -: Antibody screen: negative, GBS status: positive, HBsAG: negative, HIV: negative and RPR/VDLR: negative -: Chlamydia screen: not detected and Gonorrhea screen: not detected -: Rubella: not immune and Varicella: unknown HCT: 38.7 PAP: Normal Quad screen: Normal Urine: negative 1 hr GTT: 119 Prior (ies) History: 1 spontaneous vaginal delivery 8 lb 11 oz Evaluation Evaluation Baseline heart rate: 135 Variability: Moderate (11-25) monitor accelerations: Present monitor decelerations: Absent Category of Tracing: Reactive Cervical dilation (cm): 4 Cervical effacement (%): 80 station: -1 Laboratory results: Laboratory Tests 09/08/20 09/08/20 08:35 08:35 WBC 10.4 RBC 4.51 Hgb 12.6 Hct 38.7 MCV 85.6 MCH 28.0 MCHC 32.6 RDW 14.9 H Plt Count 196 Neut % (Auto) 69.6 Lymph % (Auto) 20.2 L [place] % (Auto) 7.6 Eos % (Auto) 2.3 Baso % (Auto) 0.3 Neut # (Auto) 7200 H Lymph # (Auto) 2100 [place] # (Auto) 800 Eos # (Auto) 200 Baso # (Auto) 0 Blood Type O Positive Antibody Screen Negative [facility] Medical History (Updated 08/25/20 @ 00:00 by ) Acne Allergies Anemia Anxiety and depression Asthma Bronchitis Chlamydia (~2010) Heavy menstrual period Hemorrhoid (~2014) Major depression Obesity Painful menstrual periods Psoriasis Surgical History (Updated 06/11/20 @ 11:36 by Alea Macias RN) Anesthesia History of hernia repair (~1998) Family History (Updated 06/11/20 @ 11:33 by Alea Macias RN) Grandmother Breast cancer Pacemaker History of peritoneal dialysis Asthma Colon cancer Mother Breast cancer Scoliosis Allergies History of stillbirth Family/Other Skin cancer History of bipolar disorder Father Hypertension Sleep apnea Rheumatoid arthritis Grandmother Hypertension Hypothyroidism Sister Hyperthyroidism Anemia Scoliosis Depression Anxiety Asthma Allergies Migraines History of thyroidectomy Brother Autism Family/Other ADHD Depression Asthma Plantar warts Family/Other History of bipolar disorder Dissociative disorder Family/Other Eczema Grandfather Cancer Myocardial infarction Grandmother Cancer Breast cancer Colon cancer H/O right coronary artery stent placement Social History (Updated 05/27/20 @ 11:10 by Alea Macias RN) marital status: unmarried,living together number of children: 1 household members: significant other, family and children lives independently: No pets and animals: Yes (X 1 dog) 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) special 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 needs: No Smoking Status: Former smoker Tobacco: How many years used: 4 second hand exposure: No alcohol intake: former (pre- : occasional ) substance use type: does not use (states per OB Intake 02/24/2020 ) and marijuana (THC + with screen 02/24/2020) Meds Home Medications and Allergies Home Medications Medication Instructions Recorded Confirmed Type ondansetron 4 mg PO BID-TID PRN #7 tab 04/12/20 09/03/20 Rx acetaminophen 500 mg capsule 500 mg PO Q6H PRN 05/27/20 09/03/20 History aspirin 81 mg tablet,delayed 81 mg PO DAILY 05/27/20 09/03/20 History release doxylamine 10 mg-pyridoxine (vit 1 tab PO DAILY 05/27/20 09/03/20 History B6) 10 mg tablet,delayed release naproxen 500 mg tablet,delayed 500 mg PO BID 05/27/20 09/03/20 History release sertraline 50 mg tablet 50 mg PO DAILY 05/27/20 09/03/20 History Allergies Allergy/AdvReac Type Severity Reaction Status Date / Time cat dander Allergy Severe not Verified 09/03/20 15:54 documented in Transfer OB Record pollen extracts Allergy Intermediate not Verified 09/03/20 15:54 documented in Transfer OB Record Exam Vital Signs (past 8 hours): - 09/08/20 11:27 Blood Pressure 117/56 L Narrative Exam Narrative: generally: No acute distress lungs: Clear to auscultation bilaterally cardiovascular: Regular rate and rhythm fundal height: 40 cm estimated weight: 8-1/2 lb extremities: 1+ edema, 1+ DTRs Objective Labs Result Diagrams: 09/08/20 08:35 Labs: Laboratory Results - last 24 hr 09/08/20 09/08/20 08:35 08:35 WBC 10.4 RBC 4.51 Hgb 12.6 Hct 38.7 MCV 85.6 MCH 28.0 MCHC 32.6 RDW 14.9 H Plt Count 196 Neut % (Auto) 69.6 Lymph % (Auto) 20.2 L [place] % (Auto) 7.6 Eos % (Auto) 2.3 Baso % (Auto) 0.3 Neut # (Auto) 7200 H Lymph # (Auto) 2100 [place] # (Auto) 800 Eos # (Auto) 200 Baso # (Auto) 0 Blood Type O Positive Antibody Screen Negative Assessment and Plan Assessment and Plan Assessment and Plan narrative: assessment : 25-year-old 2 para 1 at 39 weeks gestation for induction of labor due to history of large for gestational age baby group B strep positive plan: Group B strep prophylaxis Pitocin per protocol 2 epidural as necessary expected management to spontaneous vaginal delivery Time Spent with Patient Total time spent with greater than 50% in coordination of care (as documented) at patient's floor/unit and/or counseling patient:: 15-24 minutes
--- NOTE | 2020-09-08 17:51 | PM.OBPRVD ---
Events: Labor Induction Labor & Delivery Delivery date: 09/08/20 Cervical ripening method: none Induction method: per pitocin protocol Delivery augmentation: rupture of membranes Delivery monitor: external FHT and external uterine Route of delivery: Episiotomy description: None L&D Laceration Description: Labial ( left superficial) Delivery repair: chromic Estimated blood loss (mL): 150 Anesthesia type: Epidural Complications: none Narrative: patient complete and pushed for 15 minutes. At 5:23 p.m., a live female infant delivered spontaneously in the ALE presentation. No nuchal cord. The remainder of the body delivered without difficulty and was placed on mom's abdomen. The cord was double clamped and cut after it stopped pulsing. Cord bloods were obtained. Pitocin was given in the IV fluids. Placenta delivered intact with a three-vessel cord at 5:27 p.m.. Fundus was massaged to firm. A left superficial labial laceration was repaired with 3-0 Vicryl in the usual fashion. Hemostasis was achieved. Estimated blood loss 150 cc. Apgars 9 at 1 minute and 9 at 5 minutes. . Epidural analgesia. Mom and stable to recovery. Baby 1: gender: Female Presentation: vertex Placenta delivery description: Spontaneous and Normal Configuration cord vessel description: 3 Vessels score (1 min): 9 score (5 min): 9 Plan for aftercare: To routine care
[2020-09-09] MEDS: IBUPROFEN 600 MG TABLET PO ×2 (01:23→08:07)
[2020-09-09] MEDS: LANOLIN OINT 7 GM 1 APPLIC TOP (01:23)
[2020-09-09] MEDS: DOCUSATE 100 MG CAPSULE PO (08:06)
[2020-09-09] MEDS: SERTRALINE 50 MG TABLET PO (08:06)
[2020-09-09] MEDS: PRENATAL VIT,CALC/IRON/FOLIC 1 TABLET 1 TAB PO (08:07)
[2020-09-09 13:03] VITALS: BP 138/86; PULSE 80; RESP 16; TEMP 36.6
[2020-09-09] MEDS: MEASLES,MUMPS,RUBELLA VACC/PF 0.5 ML VIAL SUBCUT (14:05)
== END 2020-09-09 14:34 | disposition home or self-care (01) | DRG 560 ==
PROVIDERS: Admitting Provider Obstetrics & Gynecology; PCP Physician Assistant Medical; Referring Provider Obstetrics & Gynecology; Visit Provider Obstetrics & Gynecology
DX: O99.824 Streptococcus B carrier state complicating childbirth (principal); Z3A.39 39 weeks gestation of pregnancy; Z37.0 Single live birth; O70.0 First degree perineal laceration during delivery; Z11.59 Encounter for screening for other viral diseases
CPT/HCPCS: 01967; 36415; 59050; 59409; 85025; 86850; 86900; 86901; 87635; G0379; J2405; J2540; J2590

== ENCOUNTER → 2020-10-24 11:13 | Outpatient (CLI) | payer OTHER, MEDICAID, SELFPAY ==
[2020-10-24 13:00] LABS: COVID19 -Nasal RAPID Negative (Negative)
== END ==
PROVIDERS: PCP Physician Assistant Medical; Visit Provider Physician Assistant
DX: Z20.822 Contact with and (suspected) exposure to COVID-19 (principal)
CPT/HCPCS: 87635

== ENCOUNTER 2020-10-26 07:13 | Day surgery (SDC) | payer OTHER, MEDICAID, SELFPAY ==
[2020-10-26] VITALS (8 sets, daily range): BP systolic 91–122; BP diastolic 49–81; PULSE 52–73; RESP 12–22; TEMP 35.9–36.8; O2SAT 93–99; BMI 40.4
[2020-10-26] MEDS: LACTATED RINGERS 1,000 ML 42 ML IV (07:57)
--- NOTE | 2020-10-26 08:31 | PM.HP.1 ---
History of Present Illness History of Present Illness Date Patient Seen: 10/26/20 Time Patient Seen: 08:31 Chief complaint: SDC Narrative: Patient is a 25-year-old 2 para 2 who presents for a laparoscopic bilateral tubal ligation for permanent sterilization Patient History Medical History (Updated 08/25/20 @ 00:00 by ) Acne Allergies Anemia Anxiety and depression Asthma Bronchitis Chlamydia (~2010) Heavy menstrual period Hemorrhoid (~2014) Major depression Obesity Painful menstrual periods Psoriasis Surgical History (Updated 06/11/20 @ 11:36 by Alea Macias, BENY) Anesthesia History of hernia repair (~1998) Family & Social History Family History (Updated 06/11/20 @ 11:33 by Alea Macias RN) Grandmother Breast cancer Pacemaker History of peritoneal dialysis Asthma Colon cancer Mother Breast cancer Scoliosis Allergies History of stillbirth Family/Other Skin cancer History of bipolar disorder Father Hypertension Sleep apnea Rheumatoid arthritis Grandmother Hypertension Hypothyroidism Sister Hyperthyroidism Anemia Scoliosis Depression Anxiety Asthma Allergies Migraines History of thyroidectomy Brother Autism Family/Other ADHD Depression Asthma Plantar warts Family/Other History of bipolar disorder Dissociative disorder Family/Other Eczema Grandfather Cancer Myocardial infarction Grandmother Cancer Breast cancer Colon cancer H/O right coronary artery stent placement Social History: household members significant other,family,children lives independently No Tobacco & Substance use: Smoking Status Former smoker alcohol intake former alcohol intake frequency 0-2 drinks per day Substance Use Type does not use Meds Home Medications and Allergies Home Medications Medication Instructions Recorded Confirmed Type prenat.vits,leighton,[id number] 1 tab PO DAILY 10/15/20 10/26/20 History Allergies Allergy/AdvReac Type Severity Reaction Status Date / Time cat dander Allergy Severe Hives Verified 10/26/20 07:41 pollen extracts Allergy Intermediate ITCHING Verified 10/26/20 07:41 sertraline AdvReac Severe Depression Verified 10/26/20 07:40 Exam Vital Signs (past 8 hours): - 10/26/20 07:51 Temperature 97.6 F Pulse Rate 73 Respiratory Rate 16 Blood Pressure 122/81 Pulse Oximetry 98 Oxygen Delivery Method Room Air Narrative Exam Narrative: HEENT: No thyromegaly, no anterior cervical or supraclavicular lymphadenopathy. Lungs:Clear to auscultation bilaterally, no wheezes. Cardiovascular: Regular rate and rhythm, no murmurs, rubs, or gallops. Abdomen: No scars. No hepatosplenomegaly. No masses palpable. External genitalia: Normal Vagina: Normal Cervix: Normal Bimanual exam: 6 Week size uterus. Mobile.] Assessment & Plan Assessment & Plan narrative: Assessment: 25-year-old 2 para 2 who desires permanent sterilization Plan: Laparoscopic bilateral tubal ligation with electrocautery The risks, benefits, and alternatives to the procedure were explained to the patient. The risks including bleeding, infection, injury to the bowel, bladder, or ureters. She also understands that there is a possibility of uterine perforation. She understands these risks and agrees to proceed. A full par Q was held and consent form was signed. COVID-19 COVID-19 status: Negative Result date/Date tested (Pos, Neg/Pending): 10/24/20 Time Spent With Patient Time with patient: less than 15 minutes
--- NOTE | 2020-10-26 08:33 | PM.PREOP ---
Pre-operative Note COVID-19 COVID-19 status: Negative Result date/Date tested (Pos, Neg/Pending): 10/24/20 Interval Note History & Physical reviewed/Exam performed by Physician: Yes Changes to H&P: No H&P completed within 30 days and has changed as indicated here:: 10/26/20
--- NOTE | 2020-10-26 09:23 | SUR.OPER ---
Lithotomy on padded OR bed, head on pillow, arms secured on padded arm boards at <90 degrees abduction. Legs secured in padded yellow fins stirrups.
[2020-10-26] MEDS: BUPIVACAINE 0.5% W/ EPI (PF) 30 ML VIAL 10 ML INJ (09:28)
--- NOTE | 2020-10-26 09:34 | PM.GYNOP.1 ---
Operative Date/Time/Diagnoses Date of procedure: 10/26/20 Time of procedure: 09:34 Pre-op diagnosis: Multiparity Desires permanent sterilization Post-op diagnosis: same Procedure & Clinicians Procedure: Procedures Operation Date: 10/26/20 08:45 Actual Procedures Side Surgeon p Laparoscopic Tubal Ligation Bilateral Cierra Michel MD Indications: Multiparity Desires permanent sterilization Surgeon: Cierra Michel Anesthesia Type: General and Local Operative Notes Findings: Six week size anteverted uterus Normal tubes and ovaries Normal liver and gallbladder Normal appendix Closure Type: primary Specimen(s): none Estimated blood loss (mL): 2 Blood products transfused: none Procedure in detail: After informed consent was obtained, the patient was taken to the operating room where she was placed in the dorsal supine position. After adequate general endotracheal anesthesia was achieved, she was placed in the dorsal lithotomy position, and prepped and draped in the usual sterile fashion. A time-out was performed. A bivalve speculum was placed into the vagina and the anterior lip of the cervix was grasped with a single-tooth tenaculum. The cervical os was sequentially dilated until the Zumi uterine manipulator could pass easily into the endometrial cavity. Single-tooth tenaculum was removed from the anterior lip of the cervix. The bivalve speculum was removed from the vagina. Attention was then turned to the abdomen where 6 cc of 0.5% Marcaine with epinephrine were injected in the umbilical fold. A 1 cm incision was made. The Veress needle was placed into the peritoneal cavity, and its placement confirmed by aspiration and drop test. The abdominal cavity was insufflated with 4.5 L of CO2. The Veress needle was removed, and a 10 mm trocar was placed without difficulty. The operative laparoscopic was placed through the trocar. The liver and gallbladder were examined and were found to be normal. The appendix was normal. The tubes and ovaries were normal. The Kleppinger was placed through the operative laparoscope and the right tube was grasped midway between the cornua and the fimbria. Cautery was applied until blanching occurred and loss of resistance. This was repeated 2 more times on the right side. All of this was repeated on the left tube. The instruments were removed from the abdomen. The CO2 was allowed to escape. The incision was closed on the fascia with 0 Vicryl with the [id number] suture. Two simple interrupted sutures with 2-0 Vicryl were placed in the subcutaneous layer. The skin was closed with 4-0 Biosyn in a subcuticular fashion. Steri-Strips and Allevyn dressing were placed. The Zumi uterine manipulator was removed from the uterus. Sponge, lap, and instrument counts were correct x2. The patient tolerated the procedure well, and was taken to PACU in stable condition. Complications: none Post-operative Condition: stable Disposition: PACU Plan for aftercare: Home after recovery
--- NOTE | 2020-10-26 12:51 | SUR.OPER ---
Lithotomy on padded OR bed, head on pillow, arms secured on padded arm boards at <90 degrees abduction. Legs secured in padded yellow fins stirrups.
== END 2020-10-26 10:50 | disposition home or self-care (01) ==
PROVIDERS: PCP Physician Assistant Medical; Referring Provider Physician Assistant Medical; Visit Provider Obstetrics & Gynecology
PROC: (CPT 58671; principal; 2020-10-26 08:45)
DX: Z30.2 Encounter for sterilization (principal)
CPT/HCPCS: 58670; J1100; J1885; J2250; J2405; J2704; J3010